=== PATIENT | male | born 2000 | race Caucasian/White ===

== ENCOUNTER 2023-03-25 17:10 | Emergency (ER) | payer OTHER ==
[~2023-03-25] VITALS: Ht 182.8 cm; Wt 90.7 kg
--- NOTE | 2023-03-25 17:38 | ED Dyspnea ---
General Chief Complaint: General Problems/Pain Stated Complaint: SOA/BACK PAIN Nursing Triage Note: PT AMB TO RM 7 WITH CC OF SUDDEN SOA, BACK PAIN AND LH. 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 PT REPORTS PAIN HAS SUBSIDED. PT DENIES CARDIAC HX AND CHEST PAIN AT THIS TIME. NO RESP DISTRESS NOTED AT TRAIGE Source of Information: Patient Exam Limitations: No Limitations History of Present Illness Date Seen by Provider: Mar 25, 2023 Time Seen by Provider: 17:38 Initial Comments Patient is a 22-year-old male who presents to the emergency room with a chief complaint of sudden onset shortness of breath about 30 minutes prior to arrival with some left-sided shoulder/back pain. He states it was brief, spontaneously resolved, the pain recurred 2 or 3 times. He states he was just sitting doing homework. He has never had a pain or shortness of breath like this before. He denies recent fever, cough, chills, congestion. He is a little nauseated. He denies problems with urination or bowel movements. No headache. He is concerned that he might be having "a heart attack". He is not a smoker. Takes no daily medications. Last time he saw Was about "6 years ago". No family history of early coronary artery disease in mom dad, brothers and sisters. He states about a week ago he had a 6-hour travel home and back. Denies leg swelling or pain in his calves. No personal history of blood clot no first- degree family history of blood clot. He states he is not having any pain now, is not short of breath. States he drinks "alot of coffee" usually - but only one cup today. He also doesn't sleep well due to school stress/homework. Timing/Duration: 1/2 Hour Severity: Moderate Activities at Onset: Emotional Stress ("doing homework") Prior Episodes/Possible Cause: No Prior Episodes Associated Symptoms: Denies Symptoms Allergies and Home Medications Patient Home Medication List Home Medication List Reviewed: Yes Review of Systems Review of Systems Constitutional: see HPI EENTM: no symptoms reported Respiratory: short of breath Cardiovascular: no symptoms reported Gastrointestinal: no symptoms reported Genitourinary: no symptoms reported Musculoskeletal: back pain (left shoulder pain) Skin: no symptoms reported Psychiatric/Neurological: Other (poor sleep) Past Fpwscyr-Dzitwa-Psrkgz Hx Patient Social History Tobacco Use?: No Substance use?: No Alcohol Use?: No Past Medical History Surgery/Hospitalization HX: DENIES Physical Exam Vital Signs Vital Signs - First Documented 03/25/23 17:30 Temp 36.8 Pulse 113 Resp 18 B/P (MAP) 129/88 (102) Pulse Ox 99 O2 Delivery Room Air Capillary Refill : Less Than 3 Seconds Height, Weight, BMI Height: '" Weight: lbs. oz. kg; 27.00 BMI Method: General Appearance: No Apparent Distress, WD/WN Neck: Normal Inspection Respiratory: Chest Non Tender, Lungs Clear, Normal Breath Sounds, No Accessory Muscle Use, No Respiratory Distress Cardiovascular: Regular Rate, Rhythm (tachy 120), Tachycardia Extremity: No Calf Tenderness, No Pedal Edema Neurologic/Psychiatric: Alert, Oriented x3, No Motor/Sensory Deficits, Normal Mood/Affect Skin: Normal Color, Warm/Dry Progress/Results/Core Measures Results/Orders Vital Signs/I&O 03/25/23 17:30 Temp 36.8 Pulse 113 Resp 18 B/P (MAP) 129/88 (102) Pulse Ox 99 O2 Delivery Room Air Blood Pressure Mean: 102 Progress Progress Note : Time: 18:58 Progress Note Patient seen and evaluated by me. Evaluation today includes history and physical exam. Pertinent physical exam findings well-developed well-nourished male in mild distress due to concern for "heart attack". He is slightly tachycardic in the 1 teens to 120s. Blood pressure is good, pulse ox is 100% on room air. He is afebrile. Exam is generally unremarkable other than tachycardia. Heart is regular, lungs are clear. No reproducible chest wall or thoracic back pain. He is mentating appropriately, no focal neurologic deficits. No calf tenderness or swelling. Differential diagnosis muscle spasm, anxiety, PE, pleurisy, musculoskeletal back pain Patient monitored in the emergency department for approximately 45 minutes. He has no risk factors for acute coronary syndrome. He is not a smoker, takes no daily medications for high blood pressure. As he is allowed to sit in the emergency department his blood pressure comes down to 116/86. He does remain a little tachycardic but his heart rate improved to 109/110. Room air sats are 100%. While he did have some travel a week ago 6 hours to home and 6 hours back I do not feel this is enough for "prolonged immobility" to be a risk for PE. He is having no hemoptysis, no cough, no persistent shortness of breath. He has no family history of early coronary artery disease. No illicit drug use. He does mention that he does not sleep at night and drinks a lot of coffee in order to stay awake to study. He only had 1 cup today and his primary complaint at this time seems to be just "fatigue". Reassurance is provided. Consideration for chest x-ray however his lungs are completely clear, sats are normal he is not tachypneic, history and physical do not support the need. No indication for EKG at this time. Suspect the primary cause of his symptoms may be anxiety. Potentially some dehydration and lack of sleep. Patient is encouraged to follow-up with a primary care physician. Return precautions provided in both verbal and written format. All questions are sought and answered. Patient is stable at discharge. Heart rate 100, room air sats 98%, blood pressure again 116/86 Departure Impression Primary Impression: Dyspnea Qualified Codes: R06.00 - Dyspnea, unspecified Additional Impression: Anxiety about health Disposition: 01 HOME, SELF-CARE Condition: Stable Departure-Patient Inst. Decision time for Depature: 18:57 Referrals: NO,LOCAL PHYSICIAN (PCP) Primary Care Physician Patient Instructions: Shortness of Breath, Adult ED Add. Discharge Instructions: Drink plenty of fluids to stay well-hydrated. If you have a return of back pain with worsening shortness of breath, cough or fever please return to the emergency department for reevaluation. It is very important that you get adequate sleep at least 6 hours a night, have good nutrition in order to be at your best self for school. You should follow-up with a primary care doctor for yearly checkups, even at age 22. TAYLOR COUCH MD Mar 25, 2023 17:38
[2023-03-25 19:05] VITALS: BP 116/86
== END 2023-03-25 19:05 | disposition home or self-care (01) ==
LOC: ER 17:13
DX: R06.00 Dyspnea, unspecified (principal); F41.9 Anxiety disorder, unspecified
CPT/HCPCS: 99281

== ENCOUNTER 2023-03-27 22:28 | Emergency (ER) | payer OTHER ==
[~2023-03-27] VITALS: Ht 182.9 cm; Wt 100.0 kg
[2023-03-27 22:40] VITALS: BP 147/89
--- NOTE | 2023-03-27 23:27 | ED General ---
General Chief Complaint: General Problems/Pain Stated Complaint: CHILLS, WEAKNESS IN LEFT ARM, PAIN CHEST Nursing Triage Note: Pt presents with c/o "feelings of doom and gloom" Pt reports he was here 2 days ago for rapid heart rate and difficulty breathing and state's he's been getting worse since then. Pt reports he was trying to go to bed, that he has finals tomorrow and woke up shivering, with neck pain, nausea, L arm weakness and L side chest pain that is deep in his chest. Pt reports Arm and chest problems were reproducible initially. Source of Information: Patient Exam Limitations: No Limitations History of Present Illness Date Seen by Provider: Mar 27, 2023 Time Seen by Provider: 23:15 Initial Comments Patient is a 22-year-old male who presents to the emergency room with a chief complaint of rapid heartbeat, feeling short of breath, intermittent chest discomfort under the left nipple and into the left shoulder and arm. He has had some neck discomfort as well as nausea this evening. I saw him in the emergency department 2 nights ago with very similar symptoms. He has negative past medical history. Does not smoke. Does not use illicit drugs. Has no family history of early coronary artery disease. States he has not had any recent illnesses such as fevers, chills, cough or congestion. No diarrhea or urinary complaints. Mild headache this evening. He advised the nurse that he felt "doom and gloom". The chest pain does not radiate from sternum into thoracic spine. Nothing makes the pain any better or worse. He states he has had the same symptoms off and on for the last 2 to 3 days. He did make a follow-up appointment with the [facility] but its not until Monday. He has quite a bit of increased stress as finals are this week. He states that he sleeps 3 to 4 hours a night. He has been doing a lot of traveling back and forth from [place] to [place] to make time for family. Has taken a course load of 260 hours for his bachelors, approximately 20 hours per semester. He is quite dismissive of the amount of stress he has been under. He states that his heart rate was "108" for hours today. 77 on arrival today to the emergency department Timing/Duration: 2-3 Days Severity: Moderate Associated Systoms: Chest Pain, Fever/Chills (Chills without fever), Headaches, Malaise, Shortness of Air Allergies and Home Medications Patient Home Medication List Home Medication List Reviewed: Yes Review of Systems Review of Systems Constitutional: see HPI, malaise EENTM: no symptoms reported Respiratory: no symptoms reported, short of breath Cardiovascular: chest pain Gastrointestinal: nausea Genitourinary: no symptoms reported Musculoskeletal: neck pain Skin: no symptoms reported Psychiatric/Neurological: Headache Past Bnccldf-Wqsmns-Ytobxm Hx Patient Social History Tobacco Use?: No Use of E-Cig and/or Vaping dev: No Substance use?: No Alcohol Use?: No Immunizations Up To Date Influenza Vaccine Up-to-Date: No; Not Current Past Medical History Surgery/Hospitalization HX: DENIES Physical Exam Vital Signs Vital Signs - First Documented 03/27/23 22:40 Temp 36.8 Pulse 87 Resp 16 B/P (MAP) 147/89 (108) Capillary Refill : Less Than 3 Seconds Height, Weight, BMI Height: '" Weight: lbs. oz. kg; 29.00 BMI Method: General Appearance: No Apparent Distress, WD/WN Eyes: Bilateral Eye Normal Inspection, Bilateral Eye PERRL, Bilateral Eye EOMI HEENT: PERRL/EOMI Neck: Full Range of Motion, Non Tender, Supple Respiratory: Chest Non Tender, Lungs Clear, Normal Breath Sounds, No Accessory Muscle Use Cardiovascular: Regular Rate, Rhythm (80's), Normal Peripheral Pulses Gastrointestinal: Non Tender, Soft Extremity: Normal Capillary Refill, Normal Range of Motion, No Calf Tenderness, No Pedal Edema Neurologic/Psychiatric: Alert, Oriented x3, No Motor/Sensory Deficits, rest room matron II- XII Norm as Tested, Other (flat affect) Skin: Normal Color, Warm/Dry Progress/Results/Core Measures Suspected Sepsis SIRS Temperature: Pulse: 87 Respiratory Rate: 16 Blood Pressure 147 /89 Mean: 108 Results/Orders Lab Results Laboratory Tests Test 03/27/23 23:15 Range/Units SARS-CoV-2 RNA (RT-PCR) Not Detected Not Detecte My Orders Orders - TAYLOR COUCH MD Covid 19 Inhouse Test (03/27/23 22:48) Ekg Tracing (03/27/23 22:48) Chest 1 View, Ap/Pa Only (03/27/23 22:48) Vital Signs/I&O 03/27/23 22:40 Temp 36.8 Pulse 87 Resp 16 B/P (MAP) 147/89 (108) Capillary Refill : Less Than 3 Seconds Blood Pressure Mean: 108 Progress Note : Time: 00:36 Progress Note Patient seen and evaluated by me, evaluation today includes physical history and physical exam, COVID test, EKG and single view chest x-ray. Pertinent physical exam findings well-developed well-nourished 22-year-old with stable vital signs, heart is regular, not tachycardic. Lungs are clear. No reproducible chest wall tenderness. 2+ radial pulses bilaterally. No swelling in his lower extremities, calf tenderness. No focal neurologic deficits. He does have quite a flat affect. Constantly looking at the monitor. Differential diagnosis includes viral syndrome, pulmonary embolism, acute coronary syndrome, aortic dissection, panic/anxiety disorder Patient is monitored in the emergency department during his stay with no deterioration in his condition, no change in his vital signs. His room air oxygen saturation is 100%. He is not tachycardic. Not hypotensive. He is afebrile. EKG reviewed and interpreted by me shows normal sinus rhythm without ectopy, no pathologic ST segment elevation or depression. No arrhythmia or concerning findings for Shtpj-Ztbtqxzlu-Zyope. Chest x-ray reviewed by me shows no evidence of mediastinal widening, no effusions, no infiltrates. His COVID test is negative. I discussed with him stressors and anxiety regarding finals at college, his poor sleep habits, his travel. Suspect that this may be primarily anxiety driven. He has 0 risk factors for acute coronary syndrome. He is not a smoker. Reassurance is provided. I did advise him to keep his follow-up appointment with the [facility] on Monday. Return precautions provided in both verbal and written format. All questions are sought and answered. Patient is stable for discharge. ECG Initial ECG Impression Date: Mar 28, 2023 Initial ECG Impression Time: 23:16 Initial ECG Rate: 77 Initial ECG Rhythm: Normal Sinus Initial ECG Intervals: Normal Initial ECG Impression: Normal Comment no ectopy; no pathologic ST elevation or depression (diffuse ST elevation - not pericarditis) Diagnostic Imaging Diagonstic Imaging: Xray Plain Films/CT/US/NM/MRI: chest Comments Single view chest x-ray independently reviewed and interpreted by me -no effusion, infiltrate, normal mediastinal structures Departure Impression Primary Impression: Chest pain Qualified Codes: R07.9 - Chest pain, unspecified Additional Impression: Anxiety about health Disposition: HOME, SELF-CARE Condition: Stable Departure-Patient Inst. Decision time for Depature: 00:27 Referrals: NO,LOCAL PHYSICIAN (PCP/Family) Primary Care Physician Patient Instructions: Anxiety, Adult ED, Chest Pain That Is Not Caused by the Heart (DC) Add. Discharge Instructions: Drink plenty of fluids to stay well-hydrated. It is imperative that you get at least 6 hours of sleep at night. Be mindful of stressful triggers. You need to eat well along with good sleep. You can take zwqk-gyq-blredeu ibuprofen 3 tablets which is 600 mg every 6 hours with food as needed for pain. I would encourage you to keep your follow-up appointment with the [facility]. They may be able to further reassure you, give you some tools to manage the symptoms that you are experiencing. If you develop worsening symptoms, new, emergent concerns please return to the emergency room for reevaluation. TAYLOR COUCH MD Mar 27, 2023 23:27
--- NOTE | 2023-03-28 06:07 | Diagnostic Imaging Report ---
EXAMINATION: Chest 1 view HISTORY: Chest pain, anxiety COMPARISON: None available. FINDINGS: Heart size and pulmonary vasculature are normal. The lungs are clear without consolidation, pleural effusion, or pneumothorax. The osseous structures are intact. IMPRESSION: 1. No acute radiographic abnormality in the chest. Dictated by: Dictated on workstation # [id number]
== END 2023-03-28 00:40 | disposition home or self-care (01) ==
LOC: EDUNIT# 22:28 → ER 22:32
DX: R07.89 Other chest pain (principal); F41.9 Anxiety disorder, unspecified
CPT/HCPCS: 71045; 87636; 93005